=== PATIENT | female | born 1995 | race Caucasian/White ===

== ENCOUNTER 2020-12-31 07:31 | Day surgery (SDC) | payer MEDICARE, MEDICAID ==
[~2020-12-31] VITALS: Ht 162.6 cm; Wt 117.5 kg
--- NOTE | 2020-12-31 07:32 | NUR ---
PATIENT AMBULATED TO BATHROOM WITH STEADY GAIT.
--- NOTE | 2020-12-31 07:47 | NUR ---
PATIENT BIB [facility] WITH CHIEF C/O DIARRHEA X4 DAYS AND NAUSEA, NO VOMITTING. PATIENT ALSO C/O DIFFUSE ABD PAIN. PER EMS PATIENT'S DIARRHEA HAS PROGRESSIVELY GOTTEN WORSE WITH TODAY BEING THE WORST, PATIENT TOOK 3 IMMODIUM THIS MORNING. PER EMS PATIENT WAS DIAGNOSED WITH HEP A 12/18/2020, VITALS STABLE EN ROUTE PER EMS. UPON ASSESSMENT PATIENT C/O FATIGUE, FAINT AND BODY ACHES ALONG WITH DIARRHEA, DENIES FEVER, DENIES SOB. NADN, VSS, WARM BLANKET PROVIDED, CALL LIGHT WITHIN REACH.
[2020-12-31] MEDS ORDERED: MORPHINE SULFATE 4 MG/ML, 1ML ONE (07:50)
[2020-12-31] MEDS ORDERED: ONDANSETRON 2MG/ML, 2ML ONE ×2 (07:50→18:00)
--- NOTE | 2020-12-31 07:59 | NUR ---
20 GAUGE IV STARTED LEFT AC, BLOOD COLLECTED AND SENT TO LAB, MEDICATED PER [facility].
[2020-12-31] MEDS ORDERED: ONDANSETRON 2MG/ML, 2ML IVPush ONE (08:00)
[2020-12-31] MEDS ORDERED: MORPHINE SULFATE 4 MG/ML, 1ML IVPush PRN (08:00)
[2020-12-31] MEDS ORDERED: SODIUM CHLORIDE 0.9% 1,000ML IVBOLUS ONE (08:00)
[2020-12-31] MEDS ORDERED: PLEASE ENTER ALLERGIES MC SCH (08:00)
--- NOTE | 2020-12-31 08:04 | NUR ---
SODA WORKER AT BEDSIDE.
[2020-12-31 08:11] LABS: BASOPHILS % (AUTO) 1 % (0-1); EOSINOPHILS % (AUTO) 2 % (1-7); LYMPHOCYTES % (AUTO) 23 % (22-44); MEAN CORPUSCULAR HEMOGLOBIN 30.6 pg (27.0-34.8); MEAN CORPUSCULAR HGB CONC 33.7 g/dL (32.4-35.8); MONOCYTES % (AUTO) 4 % (2-9); NEUTROPHILS % (AUTO) 71 % (42-75); PLATELET COUNT 496 x10^3/uL (130-400); RED BLOOD COUNT 4.15 x10^6/uL (3.82-5.3); RED CELL DISTRIBUTION WIDTH 13.7 % (9.6-15.2)
[2020-12-31 08:12] LABS: MD NO
[2020-12-31 08:22] LABS: ALANINE AMINOTRANSFERASE 33 U/L (12-78); ALBUMIN 3.5 g/dL (3.4-5.0); ANION GAP 10 mmol/L (5-15); CALCIUM 8.9 mg/dL (8.5-10.1); CHLORIDE 114 mmol/L (98-107); CREATININE 0.78 mg/dL (0.55-1.02)
[2020-12-31 08:24] LABS: ALKALINE PHOSPHATASE 123 U/L (45-117); BILIRUBIN,TOTAL 0.3 mg/dL (0.2-1.0)
--- NOTE | 2020-12-31 08:46 | NUR ---
PATIENT AMBULATED TO BATHROOM WITH STEADY GAIT FOR URINE AND STOOL SAMPLE.
--- NOTE | 2020-12-31 08:57 | NUR ---
URINE SAMPLE COLLECTED AND SENT TO LAB, PATIENT UNABLE TO HAVE A BM AT THIS TIME, PATIENT STATES "I THINK IT'S THE PAIN MEDICINE THAT'S MAKING IT SO I DON'T HAVE TO GO." PATIENT AMBULATED BACK TO ROOM, CONNECTED TO [employer] MACHINE, CALL LIGHT WITHIN REACH, NO FURTHER NEEDS AT THIS TIME. Addendum: 12/31/20 at 0931 by AMBER MARTHA NOTIFIED THAT PATIENT IS UNABLE TO LEAVE STOOL SAMPLE.
[2020-12-31 09:06] LABS: MICROSCOPIC NOT IND
--- NOTE | 2020-12-31 09:22 | NUR ---
ER PROVIDER AT BEDSIDE TO DISCUSS POC.
--- NOTE | 2020-12-31 09:51 | NUR ---
REPORT GIVEN TO ALEXEI SCHULTZ FOR TRANSFER OF PATIENT CARE.
[2020-12-31] MEDS ORDERED: CEFOTETAN PMX 2GM/50ML 50 ML IVPB ONE (10:00)
[2020-12-31] MEDS ORDERED: ONDANSETRON 2MG/ML, 2ML IVPush PRN ×4 (10:00→20:00)
[2020-12-31] MEDS ORDERED: HYDROmorphone 1 MG/ML, 1ML INJ IVPush PRN (10:00)
[2020-12-31] MEDS ORDERED: POTASSIUM CHLORIDE 20 MEQ in D5%-0.45% NACL 1,000 ML IV ONE (10:00)
--- NOTE | 2020-12-31 10:04 | NUR ---
dr kang spoke with dr cornelius
[2020-12-31] MEDS ORDERED: DEXT5TAB17 PO (10:59)
[2020-12-31] MEDS ORDERED: NORE1TAB11 PO (10:59)
[2020-12-31] MEDS ORDERED: VALA10007 PO (10:59)
[2020-12-31] MEDS ORDERED: PRAZ5CAP2 PO (10:59)
[2020-12-31] MEDS ORDERED: TOPI25TA32 PO (10:59)
[2020-12-31] MEDS ORDERED: FLUT1BLS10 INH (10:59)
[2020-12-31] MEDS ORDERED: DULO30CA44 PEG (10:59)
[2020-12-31] MEDS ORDERED: ATOR20TA86 PO (10:59)
[2020-12-31] MEDS ORDERED: IPRA4AER INH (10:59)
[2020-12-31] MEDS ORDERED: LORA-446 PO (11:00)
--- NOTE | 2020-12-31 11:03 | NUR ---
MED REC DONE.
--- NOTE | 2020-12-31 11:24 | NUR ---
GAVE REPORT TO RN
[2020-12-31 11:43] VITALS: BP 103/58
[2020-12-31 12:25] LABS: HCG UR SG 1.013 (1.003-1.030)
[2020-12-31 12:55] VITALS: BP 114/76
[2020-12-31] MEDS ORDERED: ACETAMINOPHEN 325 MG TABLET PO PRN ×2 (13:30→18:30)
[2020-12-31] MEDS ORDERED: HYDROmorphone 1 MG/ML, 1ML INJ IV PRN (13:30)
[2020-12-31] MEDS ORDERED: ALBUTEROL HFA 90 MCG/SPRAY INH PRN (13:30)
[2020-12-31] MEDS ORDERED: D5%-0.45NACL+KCL 20MEQ 1,000 ML IV SCH (14:00)
[2020-12-31] MEDS ORDERED: CHLORHEXIDINE 15 ML UDC ONE (15:10)
[2020-12-31] MEDS ORDERED: INDOCYANINE GREEN 25 MG VIAL ONE (15:20)
[2020-12-31] MEDS ORDERED: CHLORHEXIDINE 15 ML UDC MM ONE (15:30)
[2020-12-31] MEDS ORDERED: SCOPOLAMINE 1MG PATCH TD ONE ×2 (15:47→16:00)
[2020-12-31] MEDS ORDERED: BUPIVACAINE/PF 0.5% ONE (15:58)
[2020-12-31] MEDS ORDERED: EPINEPHRINE 1 MG/ML, 1ML ONE (15:58)
[2020-12-31] MEDS ORDERED: FENTANYL PF 250 MCG/5ML ONE (16:49)
[2020-12-31] MEDS ORDERED: MIDAZOLAM 1 MG/ML, 2ML ONE (16:49)
[2020-12-31] MEDS ORDERED: SUGAMMADEX 200 MG/2 ML IVPush ONE ×2 (16:54→18:00)
[2020-12-31] MEDS ORDERED: KETOROLAC 30 MG/1 ML ONE (16:54)
[2020-12-31] MEDS ORDERED: PROPOFOL 10 MG/ML, 20ML ONE (17:59)
[2020-12-31] MEDS ORDERED: CEFOTETAN 2 GM ONE (18:00)
[2020-12-31] MEDS ORDERED: ROCURONIUM 10MG/ML,5ML ONE (18:00)
[2020-12-31] MEDS ORDERED: DEXAMETHASONE 4 MG/ML, 1ML ONE ×2 (18:00)
[2020-12-31] MEDS ORDERED: FENTANYL PF 100 MCG/2ML ONE ×2 (18:03→18:32)
[2020-12-31] MEDS ORDERED: OXYC5TAB2 PO ×2 (18:10→22:00)
[2020-12-31] MEDS ORDERED: HALOPERIDOL 5 MG/ML IV PRN ×2 (18:30)
[2020-12-31] MEDS ORDERED: OXYcodone 5 MG/5 ML ORAL.SOL UDC PO PRN ×2 (18:30→20:00)
[2020-12-31] MEDS ORDERED: DIAZEPAM 5 MG/ML, 2ML IVPush PRN (18:30)
[2020-12-31] MEDS ORDERED: MEPERIDINE/PF 25MG/0.5ML IVPush PRN (18:30)
[2020-12-31] MEDS ORDERED: MIDAZOLAM 1 MG/ML, 2ML IV PRN (18:30)
[2020-12-31] MEDS ORDERED: EPHEDRINE 50 MG/ML, 1ML IVPush PRN (18:30)
[2020-12-31] MEDS ORDERED: ALBUTEROL SULFATE 2.5 MG/3 ML NPPB PRN (18:30)
[2020-12-31] MEDS ORDERED: PROMETHAZINE 25 MG/ML, 1ML IVPush PRN (18:30)
[2020-12-31] MEDS ORDERED: PROMETHAZINE 12.5 MG SUPP PR PRN (18:30)
[2020-12-31] MEDS ORDERED: LORazepam 2 MG/ML, 1ML IVPush PRN (18:30)
[2020-12-31] MEDS ORDERED: EPHEDRINE 50 MG/ML, 1ML IM PRN (18:30)
[2020-12-31] MEDS ORDERED: LABETALOL 5MG/ML, 20ML IV PRN (18:30)
[2020-12-31] MEDS ORDERED: DIPHENHYDRAMINE 50 MG/ML, 1ML IVPush PRN ×2 (18:30→20:00)
[2020-12-31] MEDS ORDERED: hydrALAzine 20 MG/ML, 1ML IV PRN (18:30)
[2020-12-31] MEDS ORDERED: OXYcodone 5 MG/5 ML ORAL.SOL UDC ONE (18:32)
[2020-12-31] MEDS ORDERED: MEPERIDINE/PF 25MG/ML,1ML ONE (18:32)
[2020-12-31] MEDS: FENTANYL PF 100 MCG/2ML IV PRN ×2 (18:36→18:42)
[2020-12-31] MEDS ORDERED: HYDROmorphone 2 MG/ML, 1ML ONE (18:43)
[2020-12-31] MEDS: HYDROmorphone 1 MG/ML, 1ML INJ IVPush PRN ×2 (18:46→18:51)
[2020-12-31] MEDS ORDERED: LACTATED RINGERS 1,000 ML IV SCH ×2 (20:00)
[2020-12-31] MEDS ORDERED: KETOROLAC 30 MG/1 ML IV PRN (20:00)
[2020-12-31 20:26] VITALS: BP 119/73
[2020-12-31] MEDS ORDERED: ATORVASTATIN 20 MG TABLET PO SCH (21:00)
[2020-12-31] MEDS ORDERED: LORazepam 1MG TABLET PO SCH (21:00)
[2020-12-31 22:54] VITALS: BP 116/67
[2021-01-01] MEDS ORDERED: FLUTICASONE/VILANTEROL 200-25MCG/INH INH SCH (09:00)
[2021-01-01] MEDS ORDERED: PRAZOSIN 5 MG CAPSULE PO SCH (09:00)
[2021-01-01] MEDS ORDERED: ALBUTEROL-IPRATROPIUM MDI INH INH SCH (09:00)
[2021-01-01] MEDS ORDERED: VALACYCLOVIR 500MG TABLET PO SCH (09:00)
[2021-01-01] MEDS ORDERED: DULOXETINE 30 MG CAPSULE.DR PO SCH (09:00)
[2021-01-01] MEDS ORDERED: DEXTROAMPHETAMINE PO SCH (09:00)
[2021-01-01] MEDS ORDERED: TOPIRAMATE 25 MG TABLET PO SCH (09:00)
[2021-01-01] MEDS ORDERED: AMPHETAMINE PO SCH (09:00)
[2021-01-01] MEDS ORDERED: LO LOESTRIN FE PO SCH (09:00)
== END 2020-12-31 23:03 | disposition home or self-care (01) ==
LOC: ED 08:05 → UNDOADMIN 09:55 → EDIP 09:55 → 3N 11:39 → EDSTATUS 15:37 → OUT 23:03 → UNDODISIN 23:14 → OUT 01-01 06:22
PROVIDERS: ATTEND Emergency Medicine
DX: K80.12 Calculus of gallbladder with acute and chronic cholecystitis without obstruction (principal); J45.909 Unspecified asthma, uncomplicated; G43.909 Migraine, unspecified, not intractable, without status migrainosus; M79.7 Fibromyalgia; F41.9 Anxiety disorder, unspecified; F32.9 Major depressive disorder, single episode, unspecified; F43.10 Post-traumatic stress disorder, unspecified; E66.01 Morbid (severe) obesity due to excess calories; Z20.822 Contact with and (suspected) exposure to COVID-19; Z79.899 Other long term (current) drug therapy; Z88.8 Allergy status to other drugs, medicaments and biological substances; Z90.710 Acquired absence of both cervix and uterus
CPT/HCPCS: 36415; 47562; 76700; 80053; 81003; 81025; 83690; 85025; 87635; 88304; 96361; 96374; 96375; 99285; J0171; J1100; J1170; J1885; J2175; J2250; J2270; J2405; J2704; J3010; J3480; J7030; J7120; G0378